=== PATIENT | female | born 1945 | race Two or more races ===

== ENCOUNTER 2021-08-27 23:15 | Emergency (ER) | payer OTHER ==
[~2021-08-27] VITALS: Ht 137.2 cm; Wt 83.9 kg
[2021-08-27] MEDS ORDERED: LOPID (23:40)
[2021-08-27] MEDS ORDERED: XANAX0.25 MG PO (23:41)
[2021-08-27] MEDS ORDERED: COZAAR100 MG PO (23:41)
[2021-08-27] MEDS ORDERED: LEXAPRO5 MG PO (23:41)
[2021-08-27] MEDS ORDERED: [UNRECOGNIZED DRUG - OTHER] BC (23:41)
[2021-08-27] MEDS ORDERED: SYNTHROID50 MCG PO (23:42)
[2021-08-27] MEDS ORDERED: KEPPRA750 MG PO (23:42)
[2021-08-28] MEDS ORDERED: METRONIDAZOLE500 MG PO (10:21)
[2021-08-28] MEDS ORDERED: CIPRO500 MG PO (10:21)
== END 2021-08-28 14:31 | disposition home or self-care (01) ==
LOC: ER 23:15 → EDBD 23:38 → ER 23:38
DX: K57.30 Diverticulosis of large intestine without perforation or abscess without bleeding (principal); K52.9 Noninfective gastroenteritis and colitis, unspecified; R10.32 Left lower quadrant pain; E03.9 Hypothyroidism, unspecified; E78.5 Hyperlipidemia, unspecified; I10 Essential (primary) hypertension